=== PATIENT | male | born 1955 | race Caucasian/White ===

== ENCOUNTER 2018-09-20 22:07 | Emergency (ER) | payer OTHER ==
[~2018-09-20] VITALS: Ht 182.9 cm; Wt 112.5 kg
[2018-09-20 22:10] VITALS: Ht 182.9 cm; Wt 112.5 kg
[2018-09-20 23:35] VITALS: BP 147/85
== END 2018-09-20 23:35 | disposition home or self-care (01) ==
LOC: ED 22:07
DX: S01.112A Laceration without foreign body of left eyelid and periocular area, initial encounter (principal); W18.09XA Striking against other object with subsequent fall, initial encounter; Y93.89 Activity, other specified; Y92.89 Other specified places as the place of occurrence of the external cause; Y99.8 Other external cause status
CPT/HCPCS: J2001